=== PATIENT | male | born 1965 | race Caucasian/White ===

== ENCOUNTER 2024-08-07 16:24 | Inpatient (IN) | payer MEDICARE, OTHER ==
[~2024-08-07] VITALS: Ht 167.6 cm; Wt 87.5 kg
[2024-08-07] MEDS ORDERED: IOHEXOL-350 100 ML VIAL IV ONE (16:42)
[2024-08-07] MEDS ORDERED: IV NS 0.9% 250 ML IV ONE (16:43)
[2024-08-07] MEDS ORDERED: CT SWABBABLE VALVE TRANS SET 1 EA INFUS.SET MC ONE (16:43)
[2024-08-07 17:17] LABS: BASOPHILS # (AUTO) 0.1 K/uL (0.0-0.2); BASOPHILS % (AUTO) 0.7 % (0.0-2.0); EOSINOPHILS # (AUTO) 0.1 K/uL (0.0-0.7); EOSINOPHILS % (AUTO) 1.5 % (0.0-6.0); HEMATOCRIT 31 % (39-51); HEMOGLOBIN 10.4 g/dL (13.5-17.5); LYMPHOCYTES # (AUTO) 1.2 K/uL (0.8-4.8); LYMPHOCYTES % (AUTO) 12.4 % (20.0-44.0); MEAN CORPUSCULAR HEMOGLOBIN 33 PG (26.0-33.0); MEAN CORPUSCULAR HGB CONC 33 g/dl (31.0-36.0); MEAN CORPUSCULAR VOLUME 99 fL (80-96); MONOCYTES # (AUTO) 0.5 K/uL (0.1-1.30); MONOCYTES % (AUTO) 5.7 % (2.0-12.0); NEUTROPHILS # (AUTO) 7.4 K/uL (1.8-8.9); NEUTROPHILS % (AUTO) 79.7 % (43.0-81.0); PLATELET COUNT (AUTO) 211 K/uL (150-450); RED BLOOD CELL COUNT(AUTO) 3.18 MIL/uL (4.5-6.0); RED CELL DISTRIBUTION WIDTH 17.6 % (11.5-15.0); WHITE BLOOD COUNT (AUTO) 9.3 K/uL (4.3-11.0)
[2024-08-07 17:32] LABS: CALCIUM, SERUM 8.1 mg/dL (8.5-10.1); CARBON DIOXIDE 26 mmol/L (21-32); CHLORIDE 98 mmol/L (98-107); GLUCOSE 156 mg/dL (74-106); POTASSIUM 4.7 mmol/L (3.5-5.1); SODIUM SERUM 133 mmol/L (136-145); UREA NITROGEN, BLOOD 30 mg/dL (7-18)
[2024-08-07 17:42] LABS: ALANINE AMINOTRANSFERASE 9 U/L (12-78); ALBUMIN 3.1 g/dL (3.4-5.0); ALKALINE PHOSPHATASE 42 U/L (46-116); ASPARTATE AMINOTRANSFERASE 13 U/L (15-37); BILIRUBIN,DIRECT 0.1 mg/dL (0.0-0.2); BILIRUBIN,TOTAL 0.4 mg/dL (0.2-1.0); TOTAL PROTEIN, SERUM 6.3 g/dL (6.4-8.2)
[2024-08-07 18:04] LABS: INR 1.07 (0.91-1.10); PARTIAL THROMBOPLASTIN TIME 29.8 SEC (24.3-34.3)
[2024-08-07] MEDS ORDERED: CLON0.3T PO (18:09)
[2024-08-07] MEDS ORDERED: OLME40TA18 PO (18:09)
[2024-08-07] MEDS ORDERED: CARV6.252 PO (18:09)
[2024-08-07] MEDS ORDERED: LANT10005 PO (18:09)
[2024-08-07] MEDS ORDERED: GABA300C PO (18:09)
[2024-08-07] MEDS ORDERED: NIFE60TA73 PO (18:09)
[2024-08-07] MEDS ORDERED: POVI15DR EACHEYE (18:09)
[2024-08-07] MEDS ORDERED: TIMO5DRO35 LEFTEYE (18:09)
[2024-08-07] MEDS ORDERED: TRAZ-257 PO (18:09)
[2024-08-07] MEDS ORDERED: INSU100I40 SQ (18:09)
[2024-08-07] MEDS ORDERED: HYDR-4076 PO (18:09)
[2024-08-07 20:00] VITALS: BP 149/70; TEMP 98.1; O2SAT 98
[2024-08-07] MEDS ORDERED: ONDANSETRON HCL/PF 4 MG/2 ML VIAL IVP PRN (21:30)
[2024-08-07] MEDS ORDERED: Z GUARD REMEDY 4 OZ OINT TP PRN (21:30)
[2024-08-07] MEDS ORDERED: DEXTROSE 50%-WATER 50 ML DISP.SYRIN IV PRN (22:00)
[2024-08-07] MEDS: ATORVASTATIN 40 MG TABLET PO SCH (22:11)
[2024-08-07] MEDS: ASPIRIN 81 MG TAB.CHEW PO SCH (22:11)
[2024-08-07] MEDS: CLOPIDOGREL BISULFATE 75 MG TABLET PO SCH (22:11)
[2024-08-07] MEDS: BLOOD SUGAR DIAGNOSTIC 1 EACH STRIP IN SCH (22:20)
[2024-08-07] MEDS: INSULIN REGULAR, HUMAN 100 UNIT/ML 3 ML VIAL SQ PRN (22:28)
[2024-08-08] VITALS (7 sets, daily range): BP systolic 153–214; BP diastolic 56–98; TEMP 97.6–98.4; O2SAT 96–100
[2024-08-08] MEDS: PANTOPRAZOLE 40 MG TABLET.DR PO SCH (07:34)
[2024-08-08] MEDS: hydrALAZINE HCL 25 MG TABLET PO PRN (08:07)
[2024-08-08] MEDS ORDERED: CLOPIDOGREL BISULFATE 75 MG TABLET PO SCH (09:00)
[2024-08-08] MEDS ORDERED: ASPIRIN 81 MG TAB.CHEW PO SCH (09:00)
[2024-08-08] MEDS ORDERED: POVIDONE EACHEYE SCH (13:30)
[2024-08-08] MEDS: CLONIDINE HCL 0.1 MG TABLET PO PRN (15:23)
[2024-08-08] MEDS: GABAPENTIN 300 MG CAPSULE PO SCH (16:04)
[2024-08-08] MEDS: TRAZODONE 50 MG TABLET PO SCH ×2 (16:04→23:37)
[2024-08-08] MEDS: CARVEDILOL 6.25 MG TABLET PO SCH (16:06)
[2024-08-08] MEDS: hydrALAZINE HCL 25 MG TABLET PO SCH (17:10)
[2024-08-08] MEDS: CLONIDINE HCL 0.1 MG TABLET PO SCH (18:08)
[2024-08-08] MEDS ORDERED: POLYVINYL ALCOHOL 15 ML BOTTLE OP PRN (18:30)
[2024-08-08] MEDS: LANTHANUM CARBONATE 500 MG TAB.CHEW PO SCH (18:43)
[2024-08-08 21:59] LABS: BASOPHILS # (AUTO) 0.1 K/uL (0.0-0.2); BASOPHILS % (AUTO) 1.1 % (0.0-2.0); EOSINOPHILS # (AUTO) 0.2 K/uL (0.0-0.7); EOSINOPHILS % (AUTO) 2.3 % (0.0-6.0); HEMATOCRIT 33 % (39-51); HEMOGLOBIN 10.4 g/dL (13.5-17.5); LYMPHOCYTES # (AUTO) 1.2 K/uL (0.8-4.8); LYMPHOCYTES % (AUTO) 17.1 % (20.0-44.0); MEAN CORPUSCULAR HEMOGLOBIN 31 PG (26.0-33.0); MEAN CORPUSCULAR HGB CONC 32 g/dl (31.0-36.0); MEAN CORPUSCULAR VOLUME 99 fL (80-96); MONOCYTES # (AUTO) 0.5 K/uL (0.1-1.30); MONOCYTES % (AUTO) 7.3 % (2.0-12.0); NEUTROPHILS # (AUTO) 5.2 K/uL (1.8-8.9); NEUTROPHILS % (AUTO) 72.2 % (43.0-81.0); PLATELET COUNT (AUTO) 206 K/uL (150-450); RED BLOOD CELL COUNT(AUTO) 3.33 MIL/uL (4.5-6.0); RED CELL DISTRIBUTION WIDTH 17.6 % (11.5-15.0); WHITE BLOOD COUNT (AUTO) 7.2 K/uL (4.3-11.0)
[2024-08-08] MEDS ORDERED: GABAPENTIN 300 MG CAPSULE PO SCH (22:00)
[2024-08-08 22:20] LABS: ALBUMIN 3.4 g/dL (3.4-5.0); CALCIUM, SERUM 7.8 mg/dL (8.5-10.1); MAGNESIUM 2.8 mg/dL (1.8-2.4); PHOSPHORUS 7.6 mg/dL (2.5-4.9)
[2024-08-08 22:24] LABS: CREATININE 9.9 mg/dL (0.6-1.3)
[2024-08-09] VITALS: BP 180/90; TEMP 97.8; O2SAT 99
[2024-08-09 04:00] VITALS: BP 186/77; TEMP 98.6; O2SAT 96
[2024-08-09 08:00] VITALS: BP 185/76; TEMP 97.8; O2SAT 98
[2024-08-09] MEDS: LOSARTAN POTASSIUM 50 MG TABLET PO SCH (08:27)
[2024-08-09] MEDS: TIMOLOL 0.5% SOLN OPHTH 5 ML BOTTLE OP SCH (08:31)
[2024-08-09] MEDS ORDERED: NIFEDIPINE XL 60 MG TAB.ER.24 PO SCH (09:00)
[2024-08-09] MEDS: LIDOCAINE 2% JEL 5 ML TUBE MC ONE (13:45)
[2024-08-09 16:00] VITALS: BP 210/84; TEMP 97.3; O2SAT 98
[2024-08-09 20:00] VITALS: BP 217/76; TEMP 208.6; TEMP 98.1; O2SAT 97
[2024-08-09 21:00] VITALS: BP 190/88; TEMP 98.5; O2SAT 97
[2024-08-10] VITALS (7 sets, daily range): BP systolic 147–197; BP diastolic 61–91; TEMP 98.1–100.6; O2SAT 95–100
[2024-08-10 07:09] LABS: BASOPHILS % (AUTO) 0.3 % (0.0-2.0); EOSINOPHILS # (AUTO) 0.1 K/uL (0.0-0.7); EOSINOPHILS % (AUTO) 1.2 % (0.0-6.0); HEMATOCRIT 32 % (39-51); HEMOGLOBIN 10.6 g/dL (13.5-17.5); LYMPHOCYTES # (AUTO) 0.7 K/uL (0.8-4.8); LYMPHOCYTES % (AUTO) 6.6 % (20.0-44.0); MEAN CORPUSCULAR HEMOGLOBIN 33 PG (26.0-33.0); MEAN CORPUSCULAR HGB CONC 33 g/dl (31.0-36.0); MEAN CORPUSCULAR VOLUME 97 fL (80-96); MONOCYTES # (AUTO) 0.6 K/uL (0.1-1.30); MONOCYTES % (AUTO) 5.6 % (2.0-12.0); NEUTROPHILS % (AUTO) 86.3 % (43.0-81.0); PLATELET COUNT (AUTO) 187 K/uL (150-450); RED BLOOD CELL COUNT(AUTO) 3.26 MIL/uL (4.5-6.0); RED CELL DISTRIBUTION WIDTH 16.9 % (11.5-15.0); WHITE BLOOD COUNT (AUTO) 10.4 K/uL (4.3-11.0)
[2024-08-10 07:37] LABS: CALCIUM, SERUM 8.7 mg/dL (8.5-10.1); MAGNESIUM 2.3 mg/dL (1.8-2.4); PHOSPHORUS 5.2 mg/dL (2.5-4.9); POTASSIUM 5.6 mmol/L (3.5-5.1)
[2024-08-10 07:47] LABS: CREATININE 7.9 mg/dL (0.6-1.3)
[2024-08-10] MEDS: NIFEdipine XL (30MG) 30 MG TAB PO SCH (08:47)
[2024-08-10] MEDS: ACETAMINOPHEN 325 MG TABLET PO PRN (22:25)
[2024-08-11] VITALS: BP 131/63; TEMP 98.4; O2SAT 98
[2024-08-11] MEDS: ZOLPIDEM TARTRATE 5 MG TABLET PO PRN (00:16)
[2024-08-11 04:00] VITALS: BP_SYST 138; BP_SYST 168; BP_DIAS 69; TEMP 98.8; O2SAT 96
[2024-08-11 06:31] LABS: BASOPHILS % (AUTO) 0.4 % (0.0-2.0); EOSINOPHILS # (AUTO) 0.2 K/uL (0.0-0.7); EOSINOPHILS % (AUTO) 2.6 % (0.0-6.0); HEMATOCRIT 32 % (39-51); HEMOGLOBIN 10.7 g/dL (13.5-17.5); LYMPHOCYTES # (AUTO) 1.1 K/uL (0.8-4.8); MEAN CORPUSCULAR HEMOGLOBIN 33 PG (26.0-33.0); MEAN CORPUSCULAR HGB CONC 34 g/dl (31.0-36.0); MEAN CORPUSCULAR VOLUME 97 fL (80-96); MONOCYTES # (AUTO) 0.6 K/uL (0.1-1.30); MONOCYTES % (AUTO) 8.5 % (2.0-12.0); NEUTROPHILS # (AUTO) 4.8 K/uL (1.8-8.9); NEUTROPHILS % (AUTO) 72.5 % (43.0-81.0); PLATELET COUNT (AUTO) 190 K/uL (150-450); RED BLOOD CELL COUNT(AUTO) 3.26 MIL/uL (4.5-6.0); RED CELL DISTRIBUTION WIDTH 17.3 % (11.5-15.0); WHITE BLOOD COUNT (AUTO) 6.7 K/uL (4.3-11.0)
[2024-08-11 06:56] LABS: CALCIUM, SERUM 8.4 mg/dL (8.5-10.1); CREATININE 6.8 mg/dL (0.6-1.3); MAGNESIUM 2.3 mg/dL (1.8-2.4); PHOSPHORUS 4.5 mg/dL (2.5-4.9); POTASSIUM 4.2 mmol/L (3.5-5.1)
[2024-08-11 07:30] VITALS: BP 169/97; TEMP 97.3; O2SAT 99
[2024-08-11] MEDS ORDERED: CLOP75TA15 PO (13:07)
[2024-08-11] MEDS ORDERED: ASPI-1169 PO (13:07)
[2024-08-11] MEDS ORDERED: ATOR40TA PO (13:07)
[2024-08-11] MEDS: LANTHANUM CARBONATE 500 MG TAB.CHEW PO SCH (13:08)
[2024-08-11 16:00] VITALS: BP 135/66; TEMP 97.3; O2SAT 98
[2024-08-11 18:21] VITALS: BP 128/61
== END 2024-08-11 19:50 | disposition home or self-care (01) | DRG 64 ==
LOC: ER 16:37 → TELE 18:48 → MED 08-11 10:15
PROVIDERS: ADMIT Nurse Practitioner Family; ATTEND Student in an Organized Health Care Education/Training Program
PROC: 5A1D70Z Performance of Urinary Filtration, Intermittent, Less than 6 Hours Per Day (ICD-10-PCS; principal; 2024-08-09)
DX: I63.9 Cerebral infarction, unspecified (principal); G93.41 Metabolic encephalopathy; N18.6 End stage renal disease; E87.1 Hypo-osmolality and hyponatremia; E44.1 Mild protein-calorie malnutrition; I12.0 Hypertensive chronic kidney disease with stage 5 chronic kidney disease or end stage renal disease; E66.9 Obesity, unspecified; E87.5 Hyperkalemia; E11.22 Type 2 diabetes mellitus with diabetic chronic kidney disease; Z79.4 Long term (current) use of insulin; Z79.899 Other long term (current) drug therapy; E78.5 Hyperlipidemia, unspecified; E88.09 Other disorders of plasma-protein metabolism, not elsewhere classified; M89.8X9 Other specified disorders of bone, unspecified site; Z79.82 Long term (current) use of aspirin; Z99.2 Dependence on renal dialysis; D63.8 Anemia in other chronic diseases classified elsewhere; E83.42 Hypomagnesemia; Z68.31 Body mass index [BMI] 31.0-31.9, adult
CPT/HCPCS: 36415; 70450-TC; 70496-TC; 70498-TC; 80048-TC; 80061-TC; 80076-TC; 82040-TC; 82607-TC; 82962-TC; 83735-TC; 84100-TC; 84484-TC; 85025-TC; 85730-TC; 87081-TC; 90935-TC; 92507-TC; 92521; 92526; 92611-TC; 97110-TC; 97116-TC; 97530-TC; G0378; J1815; J7030; J7050; Q9967